=== PATIENT | female | born 1930 | race Caucasian/White ===

== ENCOUNTER 2017-02-17 09:07 | Observation (INO) | payer MEDICARE, MEDICAID ==
[~2017-02-17] VITALS: Ht 160 cm; Wt 55.0 kg
[2017-02-17] VITALS (9 sets, daily range): BP systolic 129–182; BP diastolic 59–92; PULSE 76–93; RESP 18–22; TEMP 97.8–98.3; O2SAT 94–98
[~2017-02-17 09:07] MED LIST: CIPR500T2 PO; ENOX40P SQ; HYDR-3580 PO; METF500 PO; QUET25 PO
[2017-02-17] MEDS ORDERED: SODIUM CHLORIDE 0.9% FLUSH 10 ML FLUSH IV FLUSH PRN ×2 (09:15→13:45)
--- NOTE | 2017-02-17 09:28 | PD ---
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 The daughter called EMS morning because the daughter thought the patient might have a urinary tract infection. She was also concerned immediately about a vaginal discharge. EMS notes no fever with a blood pressure 130/80 and heart rate of 95. O2 sat was 96% on room air. In the ER the patient's history of present illness is limited secondary to dementia. PFSH Past Medical History Alzheimer's Disease: Yes Diminished Hearing: No ?: Not Past Surgical History Genitourinary Surgery: Yes (had prolapsed urterus) Other Surgery: Yes (VARICOSE VEINS) Social History Alcohol Use: No Tobacco Use: No Substance Use: No Allergies-Medications (Allergen,Severity, Reaction): Coded Allergies: No Known Allergies (Unverified , 08/02/15) Reported Meds & Prescriptions Reported Meds & Active Scripts Active Reported Aspirin 81 Mg Chew 81 Mg CHEW DAILY Enalapril (Enalapril Maleate) 10 Mg Tab 10 Mg PO DAILY Metformin (Metformin HCl) 500 Mg Tab 500 Mg PO BIDPC With meals Review of Systems ROS Limitations: Speech Impaired, Poor Historian General / Constitutional: No: Fever Physical Exam Narrative GENERAL: 86-year-old female dementia, pleasant SKIN: Focused skin assessment warm/dry. RECTAL: There is brown stool. Guaiac positive. No mass or rectal abscess or fissure. HEAD: Atraumatic. Normocephalic. EYES: Pupils equal and round. No scleral icterus. No injection or drainage. ENT: No nasal bleeding or discharge. Mucous membranes pink and moist. NECK: Trachea midline. No JVD. CARDIOVASCULAR: Regular rate and rhythm. No murmur appreciated. RESPIRATORY: No accessory muscle use. Clear to auscultation. Breath sounds equal bilaterally. GASTROINTESTINAL: Soft. There is a gastric tube with a clean site of insertion/ no evidence cellulitis. MUSCULOSKELETAL: No obvious deformities. No clubbing. No cyanosis. No edema. NEUROLOGICAL: Patient tracks to voice. She moves her extremities. She is nonverbal. PSYCHIATRIC: Unable to assess Data Data Last Documented VS Vital Signs Date Time Temp Pulse Resp B/P Pulse Ox O2 Delivery O2 Flow Rate FiO2 02/17/17 11:19 85 20 172/92 95 Room Air 02/17/17 09:15 97.8 Vital signs reviewed Orders Basic Metabolic Panel (Bmp) (02/17/17 09:14) Complete Blood Count With Diff (02/17/17 09:14) Urinalysis - C+S If Indicated (02/17/17 09:14) Iv Access Insert/Monitor (02/17/17 09:14) Ecg Monitoring (02/17/17 09:14) Oximetry (02/17/17 09:14) Sodium Chloride 0.9% Flush (Ns Flush) (02/17/17 09:15) Cath For Specimen (02/17/17 09:14) Urine Culture (02/17/17 09:40) Prothrombin Time / Inr (Pt) (02/17/17 12:48) Act Partial Throm Time (Ptt) (02/17/17 12:48) Hepatic Functional Panel (02/17/17 12:48) Ct Abd/Pel W Iv Contrast(Rout) (02/17/17 12:48) Iohexol 350 Inj (Omnipaque 350 Inj) (02/17/17 13:19) Admit Order (Ed Use Only) (02/17/17 13:20) Labs Laboratory Tests Test 02/17/17 02/17/17 09:20 09:40 White Blood Count 6.4 TH/MM3 Red Blood Count 4.94 MIL/MM3 Hemoglobin 15.0 GM/DL Hematocrit 45.1 % Mean Corpuscular Volume 91.3 FL Mean Corpuscular Hemoglobin 30.4 PG Mean Corpuscular Hemoglobin 33.3 % Concent Red Cell Distribution Width 14.5 % Platelet Count 204 TH/MM3 Mean Platelet Volume 8.5 FL Neutrophils (%) (Auto) 57.9 % Lymphocytes (%) (Auto) 26.7 % Monocytes (%) (Auto) 6.1 % Eosinophils (%) (Auto) 8.9 % Basophils (%) (Auto) 0.4 % Neutrophils # (Auto) 3.7 TH/MM3 Lymphocytes # (Auto) 1.7 TH/MM3 Monocytes # (Auto) 0.4 TH/MM3 Eosinophils # (Auto) 0.6 TH/MM3 Basophils # (Auto) 0.0 TH/MM3 CBC Comment DIFF FINAL Differential Comment Sodium Level 141 MEQ/L Potassium Level 3.9 MEQ/L Chloride Level 106 MEQ/L Carbon Dioxide Level 24.5 MEQ/L Anion Gap 11 MEQ/L Blood Urea Nitrogen 23 MG/DL Creatinine 0.49 MG/DL Estimat Glomerular Filtration 120 ML/MIN Rate Random Glucose 107 MG/DL Calcium Level 9.1 MG/DL Urine Color LIGHT-RED Urine Turbidity HAZY Urine pH 8.0 Urine Specific [place] 1.016 Urine Protein 30 mg/dL Urine Glucose (UA) NEG mg/dL Urine Ketones NEG mg/dL Urine Occult Blood LARGE Urine Nitrite NEG Urine Bilirubin NEG Urine Urobilinogen LESS THAN 2.0 MG/DL Urine Leukocyte Esterase NEG Urine RBC /hpf Urine WBC 7 /hpf Urine Bacteria OCC /hpf Microscopic Urinalysis Comment CATH-CULTURE IND MDM Medical Decision Making Medical Screen Exam Complete: Yes Emergency Medical Condition: Yes Medical Record Reviewed: Yes Differential Diagnosis UTI, dehydration, GI bleed Narrative Course CBC & BMP Diagram 02/17/17 09:20 Urinalysis reveals hematuria The stool is brown and guaiac positive. Evidently symptoms were first noticed today. Admission for further investigation and serial blood work. LFTs and coags added. CT ab/pel added. Discussed with Dr. Portillo. H[facility]Prompt Point of Care Internal Pos. & Neg. Controls: Passed Fecal Specimen Occult Blood: Positive Diagnosis Primary Impression: Hematuria Additional Impression: Guaiac positive stools Admitting Information Admitting Physician Requests: Observation Norman Carrero MD February 17, 2017 09:28
[2017-02-17 09:56] LABS: AUTOMATED NEUTROPHIL # 3.7 TH/MM3 (1.8-7.7); BASOPHIL % 0.4 % (0.0-2.0); EOSINOPHIL # 0.6 TH/MM3 (0-0.4); EOSINOPHIL % 8.9 % (0.0-4.0); HEMATOCRIT 45.1 % (35.0-46.0); HEMO FLAGS DIFF FINAL; LYMPH % 26.7 % (9.0-44.0); LYMPHOCYTE # 1.7 TH/MM3 (1.0-4.8); MEAN CELL VOLUME 91.3 FL (80.0-100.0); MEAN CORPUSCULAR HEMOGLOBIN 30.4 PG (27.0-34.0); MEAN CORPUSCULAR HGB CONC 33.3 % (32.0-36.0); MONO % 6.1 % (0.0-8.0); NEUT % 57.9 % (16.0-70.0); PLATELET COUNT 204 TH/MM3 (150-450); RED BLOOD COUNT 4.94 MIL/MM3 (4.00-5.30); RED CELL DISTRIBUTION WIDTH 14.5 % (11.6-17.2); WHITE BLOOD COUNT 6.4 TH/MM3 (4.0-11.0)
[2017-02-17 10:09] LABS: BICARBONATE 24.5 MEQ/L (21.0-32.0); POTASSIUM 3.9 MEQ/L (3.5-5.1)
[2017-02-17 10:34] LABS: BACTERIA, URINE OCC /hpf; BLOOD, URINE LARGE (NEG); COMMENT (UR) CATH-CULTURE IND; CULTURE IF INDICATED CATH CULTURE IND; GLUCOSE,URINE NEG (NEG); KETONE, URINE NEG (NEG); NITRITE,URINE NEG (NEG)
[2017-02-17 10:36] LABS: URINE COLOR LIGHT-RED (YELLW/STRAW)
[2017-02-17] MEDS ORDERED: HYDR-4107 PO (12:13)
[2017-02-17] MEDS ORDERED: QUET1TAB7 PO (12:13)
[2017-02-17] MEDS ORDERED: CIPR-9 PO (12:13)
[2017-02-17] MEDS ORDERED: METF500T PO (12:13)
[2017-02-17] MEDS ORDERED: ENOX40IN SQ (12:13)
[2017-02-17] MEDS ORDERED: ENAL10TA PO (12:29)
[2017-02-17] MEDS ORDERED: ASPI81CH CHEW (12:29)
[2017-02-17] MEDS ORDERED: IOHEXOL 350 MG/ML 10 ML VIAL (for RAD DIAG) IV ONE (13:19)
[2017-02-17] MEDS ORDERED: ACETAMINOPHEN 325 MG TAB PO PRN (13:45)
[2017-02-17] MEDS ORDERED: ONDANSETRON HCL 4 MG/2 ML VIAL IVP PRN (13:45)
[2017-02-17] MEDS ORDERED: NALOXONE HCL 0.4 MG/ML AMP IV PRN (13:45)
--- NOTE | 2017-02-17 13:56 | RADRPT ---
EXAM DATE/TIME: 02/17/2017 13:14 [facility] COMPARISON: No previous studies available for comparison. INDICATIONS : Hematuria, swelling at G-tube site. IV CONTRAST: 68 cc Omnipaque 350 (iohexol) IV ORAL CONTRAST: No oral contrast ingested. RADIATION DOSE: 9.96 CTDIvol (mGy) MEDICAL HISTORY : dementia, alzheimer's, hypertension, prolapsed uterus, diabetes SURGICAL HISTORY : varicose vein surgery ENCOUNTER: Initial ACUITY: 1 day PAIN SCALE: Non-responsive LOCATION: Bilateral abdomen TECHNIQUE: Volumetric scanning of the abdomen and pelvis was performed. Using automated exposure control and ad justment of the mA and/or kV according to patient size, radiation dose was kept as low as reasonably achievable to obtain optimal diagnostic quality images. FINDINGS: LOWER LUNGS: The visualized lower lungs are clear. LIVER: There are low density lesions in the liver which are likely cysts, largest day 2.5 cm finding adjacen t to the falciform ligament. The gallbladder contains large calcified stones and is notable for mild wall thickening. SPLEEN: Normal size without lesion. PANCREAS: Within normal limits. KIDNEYS: There are small bilateral nonobstructing renal stones with a tiny stone in the anterior upper pole co llecting system of left kidney and a 4-5 mm stone in the posterior midpole collecting system of the r ight kidney. There is no evidence of hydronephrosis. ADRENAL GLANDS: There is a 2 cm left adrenal mass which warrants further evaluation VASCULAR: There is no aortic aneurysm. BOWEL/MESENTERY: A gastrostomy tube is present in good position. There does appear to be some tract cellulitis. No brad dence of abdominal wall or peritoneal abscess. Distal colonic diverticula. Abundant stool in the rect um. No abnormal dilatation, wall thickening or inflammatory changes ABDOMINAL WALL: See above RETROPERITONEUM: There is no lymphadenopathy. BLADDER: No wall thickening or mass. REPRODUCTIVE: Within normal limits. INGUINAL: There is no lymphadenopathy or hernia. MUSCULOSKELETAL: Previous pinning of the left hip. Degenerative changes in the spine. CONCLUSION: Gastrostomy tube tract cellulitis. Abnormal gallbladder appearance. 2 cm left adrenal mass which warrants further evaluation and ideally with chemical shift MRI Nonobstructing renal stones David Schmidt MD on February 17, 2017 at 13:45 Board Certified Radiologist. This report was verified electronically.
[2017-02-17 14:05] LABS: APTT (PATIENT) 25.2 SEC (24.3-30.1); PROTHROMBIN TIME - PATIENT 10.7 SEC (9.8-11.6)
[2017-02-17 14:10] LABS: INDIRECT BILIRUBIN 0.5 MG/DL (0.0-0.8); TOTAL BILIRUBIN ADULT 0.7 MG/DL (0.2-1.0)
[2017-02-17] MEDS: ENALAPRIL MALEATE 10 MG TAB PO SCH (15:07)
[2017-02-17] MEDS: SODIUM CHLOR 0.9% 1000 ML INJ 1,000 ML IV SCH (15:16)
--- NOTE | 2017-02-17 16:11 | HHI.HP ---
HPI Service [facility] Hospitalists Primary Care Physician Non-Staff Admission Diagnosis hematuria, guaiac positive stool Diagnoses: Chief Complaint: Hematuria Foul smelling urine Travel History International Travel<30 Days: No Contact w/Intl Traveler <30 Da: No Traveled to Known Affected Are: No History of Present Illness 86 yo Turkish speaking female with PMHX significant for dementia, diabetes and hypertension brought into [facility] due to daughter seeing blood in her diaper for the past 2 days and is concerned patient may have a urinary tract infection. Due to patients severe dementia, history is obtained from discussion with the patients daughter and review of the medical record. Daughter reports patient has not been feeling well. She states the patients urine has been extremely foul smelling. She states her mothers mentation is at her baseline. She reports purulence around the PEG tube site for the past 2 weeks of pus. Patient's stool was guaiac positive in the ED. Patient underwent an EGD with biopsy of the proximal me 3-4 days ago at [facility] in [place]. Daughter is unaware of the results of the biopsy. In the ED, CT of abdomen and pelvis was obtained which revealed gastrostomy tube tract cellulitis, abnormal gallbladder appearance, nonobstructing renal stones and a 2 cm left adrenal mass. Her white count was normal at 6.4. Chemistry panel was unremarkable except for elevated BUN of 23. Urinalysis revealed 30 protein, large occult blood occasional bacteria and 7 white blood cells. Culture is indicated and is pending. Review of Systems Except as stated in HPI: all other systems reviewed are Neg Past Family Social History Past Medical History Alzheimer's Dementia Hypertension Diabetes Mellitus, type 2 Prolapsed uterus Past Surgical History Left ORIF s/p left femoral neck fracture Varicose veins G tube placement EGD 4-5 days ago at [place] Reported Medications Aspirin 81 Mg Chew 81 Mg CHEW DAILY Enalapril (Enalapril Maleate) 10 Mg Tab 10 Mg PO DAILY Metformin (Metformin HCl) 500 Mg Tab 500 Mg PO BIDPC With meals Allergies: Coded Allergies: No Known Allergies (Unverified , 08/02/15) Active Ordered Medications Current Medications Medications (Trade) Dose Ordered Sig/Christopher Route Start Time Stop Time Status Last Admin (NS 1000 ml Inj) 1,000 ml @ 100 mls/hr Q10H IV 02/17/17 14:00 02/17/17 15:16 (NS Flush) 2 ml UNSCH PRN IV FLUSH 02/17/17 13:45 (NS Flush) 2 ml BID IV FLUSH 02/17/17 21:00 (Tylenol) 650 mg Q4H PRN PO 02/17/17 13:45 (Zofran Inj) 4 mg Q6H PRN IVP 02/17/17 13:45 (Milk Of Magnesia Liq) 30 ml Q12H PRN PO 02/17/17 13:45 (Narcan Inj) 0.4 mg UNSCH PRN IV 02/17/17 13:45 (Aspirin Chew) 81 mg DAILY CHEW 02/18/17 09:00 (Vasotec) 10 mg DAILY PO 02/17/17 14:30 02/17/17 15:07 (Pneumovax-23 Inj) 25 mcg ONCE ONCE IM 02/18/17 10:00 02/18/17 10:01 (Flu (Quadrivalent) Vaccine Inj) 0.5 ml ONCE ONCE IM 02/18/17 10:00 02/18/17 10:01 Family History Mother, age 92 following hip fracture Father, , Alzheimer's dementia Social History Quit smoking over 40yrs - previously smoked 1 pack per week x 20 yrs. Denies any EtOH use or illicit drug use. Physical Exam Vital Signs Vital Signs Date Time Temp Pulse Resp B/P Pulse Ox O2 Delivery O2 Flow Rate FiO2 02/17/17 15:22 78 18 175/80 95 02/17/17 13:58 98.3 79 18 182/86 97 Room Air 02/17/17 11:19 85 20 172/92 95 Room Air 02/17/17 09:24 94 Room Air 02/17/17 09:15 97.8 92 22 164/79 94 Physical Exam GENERAL: This is a well-nourished, well-developed patient, in no apparent distress. Awake. Nonverbal. Family is at the bedside. SKIN: No rashes, ecchymoses or lesions. Cool and dry. HEAD: Atraumatic. Normocephalic. No temporal or scalp tenderness. EYES: Pupils equal round and reactive. Extraocular motions intact. No scleral icterus. No injection or drainage. ENT: Nose without bleeding, purulent drainage or septal hematoma. Throat without erythema, tonsillar hypertrophy or exudate. Uvula midline. Airway patent. NECK: Trachea midline. No lymphadenopathy. Supple, nontender, no meningeal signs. CARDIOVASCULAR: Regular rate and rhythm without murmurs, gallops, or rubs. RESPIRATORY: Clear to auscultation. Breath sounds equal bilaterally. No wheezes , rales, or rhonchi. GASTROINTESTINAL: Abdomen soft, non-tender, nondistended. No hepato-splenomegaly , or palpable masses. No guarding. PEG site CDI with no obvious s/sxs of infection. MUSCULOSKELETAL: Extremities without clubbing, cyanosis, or edema. No joint tenderness, effusion, or edema noted. No calf tenderness. NEUROLOGICAL: Awake. Severe dementia. Laboratory Laboratory Tests Test 02/17/17 02/17/17 02/17/17 09:20 09:40 13:30 White Blood Count 6.4 Red Blood Count 4.94 Hemoglobin 15.0 Hematocrit 45.1 Mean Corpuscular Volume 91.3 Mean Corpuscular Hemoglobin 30.4 Mean Corpuscular Hemoglobin 33.3 Concent Red Cell Distribution Width 14.5 Platelet Count 204 Mean Platelet Volume 8.5 Neutrophils (%) (Auto) 57.9 Lymphocytes (%) (Auto) 26.7 Monocytes (%) (Auto) 6.1 Eosinophils (%) (Auto) 8.9 Basophils (%) (Auto) 0.4 Neutrophils # (Auto) 3.7 Lymphocytes # (Auto) 1.7 Monocytes # (Auto) 0.4 Eosinophils # (Auto) 0.6 Basophils # (Auto) 0.0 CBC Comment DIFF FINAL Differential Comment Sodium Level 141 Potassium Level 3.9 Chloride Level 106 Carbon Dioxide Level 24.5 Anion Gap 11 Blood Urea Nitrogen 23 Creatinine 0.49 Estimat Glomerular Filtration 120 Rate Random Glucose 107 Calcium Level 9.1 Total Bilirubin 0.7 Direct Bilirubin 0.2 Indirect Bilirubin 0.5 Aspartate Amino Transf 25 (AST/SGOT) Alanine Aminotransferase 27 (ALT/SGPT) Alkaline Phosphatase 70 Total Protein 7.1 Albumin 3.1 Urine Color LIGHT-RED Urine Turbidity HAZY Urine pH 8.0 Urine Specific [place] 1.016 Urine Protein 30 Urine Glucose (UA) NEG Urine Ketones NEG Urine Occult Blood LARGE Urine Nitrite NEG Urine Bilirubin NEG Urine Urobilinogen LESS THAN 2.0 Urine Leukocyte Esterase NEG Urine RBC Urine WBC 7 Urine Bacteria OCC Microscopic Urinalysis Comment CATH-CULTURE IND Prothrombin Time 10.7 Prothromb Time International 1.0 Ratio Activated Partial 25.2 Thromboplast Time Date/Time Procedure Status Source Growth 02/17/17 09:40 Urine Culture Received Urine Catheterized Urine Pending Result Diagram: 02/17/1791902/17/17 0920 Imaging Last Impressions Abdomen/Pelvis CT 02/17/17 1248 Signed Impressions: Service Date/Time: Friday, February 17, 2017 13:14 - CONCLUSION: Gastrostomy tube tract cellulitis. Abnormal gallbladder appearance. 2 cm left adrenal mass which warrants further evaluation and ideally with chemical shift MRI Nonobstructing renal stones David Schmidt MD Assessment and Plan Assessment and Plan 86 yo Turkish speaking female with PMHX significant for dementia, diabetes and hypertension brought into [facility] due to daughter seeing blood in her diaper for the past 2 days and is concerned patient may have a urinary tract infection. 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 Patient is afebrile. Normal white count. on IV Rocephin for UTI Continue with PEG tube feedings will monitor //HTN Resume home medication Hydralazine 10mg prn BP > 160/90 Monitor BP //DM Hold home Metformin Accuchecks ISS Obtain A1c //Constipation per daughter, no BM x 3 days MOM ordered Monitor for BM //DVT prophylaxis SCD/LAURA justine Written by Shannon Petty PA-C acting as scribe for Dr. Portillo on 02/17/17 at 16 :08. This note was transcribed by elvia Petty PA-C. I, Dr. Caleb Portillo personally performed the history, physical exam, and medical decision making; and confirmed the accuracy of the information in the transcribed note. Authenticated by Dr. Caleb Portillo on 02/18/17 at 00:51. Discussed Condition With Patient, daughter, ED physician Shannon Petty February 17, 2017 16:11 Erendira Portillo DO February 18, 2017 00:52
[2017-02-17] MEDS ORDERED: DEXTROSE 50% IN WATER 50 ML VIAL(D50) IV PUSH PRN (16:15)
[2017-02-17] MEDS ORDERED: GLUCAGON 1 MG/ML VIAL OTHER PRN (16:15)
[2017-02-17] MEDS ORDERED: hydrALAZINE HCL 25 MG TAB PEG PRN (17:15)
[2017-02-17] MEDS: cefTRIAXone INJ 1,000 MG in SODIUM CHLORIDE 0.9% INJ 100 ML IV SCH (17:31)
[2017-02-17] MEDS: MAGNESIUM HYDROXIDE SUSP 30 ML CUP PO PRN (17:31)
[2017-02-17] MEDS ORDERED: hydrALAZINE HCL 10 MG TAB PEG PRN (18:00)
[2017-02-17] MEDS: SODIUM CHLORIDE 0.9% FLUSH 10 ML FLUSH IV FLUSH SCH (21:00)
[2017-02-17] MEDS: INSULIN ASPART SUPPLEMENTAL SCALE SQ SCH (22:01)
[2017-02-18] VITALS (8 sets, daily range): BP systolic 126–159; BP diastolic 62–91; PULSE 80–91; RESP 16–18; TEMP 96.3–98.2; O2SAT 93–97
[2017-02-18 05:17] LABS: AUTOMATED NEUTROPHIL # 4.8 TH/MM3 (1.8-7.7); BASOPHIL % 0.2 % (0.0-2.0); EOSINOPHIL # 0.6 TH/MM3 (0-0.4); EOSINOPHIL % 8.2 % (0.0-4.0); HEMATOCRIT 38.1 % (35.0-46.0); HEMO FLAGS DIFF FINAL; LYMPH % 24.3 % (9.0-44.0); LYMPHOCYTE # 1.9 TH/MM3 (1.0-4.8); MEAN CORPUSCULAR HEMOGLOBIN 30.6 PG (27.0-34.0); MEAN CORPUSCULAR HGB CONC 33.6 % (32.0-36.0); MONO % 6.8 % (0.0-8.0); NEUT % 60.5 % (16.0-70.0); PLATELET COUNT 202 TH/MM3 (150-450); RED BLOOD COUNT 4.18 MIL/MM3 (4.00-5.30); RED CELL DISTRIBUTION WIDTH 14.7 % (11.6-17.2); WHITE BLOOD COUNT 7.9 TH/MM3 (4.0-11.0)
[2017-02-18 05:40] LABS: ANION GAP 6 MEQ/L (5-15); BICARBONATE 27.9 MEQ/L (21.0-32.0); BLOOD UREA NITROGEN 21 MG/DL (7-18); CHLORIDE 107 MEQ/L (98-107); GLOMERULAR FILTRATION RATE 110 ML/MIN (>89); POTASSIUM 3.9 MEQ/L (3.5-5.1); SODIUM (NA) 141 MEQ/L (136-145)
[2017-02-18] MEDS: INSULIN ASPART SUPPLEMENTAL SCALE SQ SCH ×4 (06:28→21:00)
[2017-02-18] MEDS: SODIUM CHLOR 0.9% 1000 ML INJ 1,000 ML IV SCH (07:51)
[2017-02-18] MEDS: SODIUM CHLORIDE 0.9% FLUSH 10 ML FLUSH IV FLUSH SCH ×2 (09:00→21:00)
[2017-02-18] MEDS: ENALAPRIL MALEATE 10 MG TAB PO SCH (09:09)
[2017-02-18] MEDS: ASPIRIN 81 MG CHEW TAB CHEW SCH (09:10)
[2017-02-18] MEDS ORDERED: PNEUMOCOCCAL POLYVALENT INJ 25 MCG/0.5 ML SYR IM ONE (10:00)
[2017-02-18] MEDS ORDERED: INFLUENZA VIRUS VACCINE (QUADRIVALENT) 0.5 ML SYR IM ONE (10:00)
[2017-02-18 13:59] LABS: HEMOGLOBIN A1a 1.3 %; HEMOGLOBIN A1b 1.2 %; HEMOGLOBIN F 1.2 %; HEMOGLOBIN LA1C 2.4 %; HEMOGLOBIN P3 6.3 %
--- NOTE | 2017-02-18 14:09 | RADRPT ---
EXAM DATE/TIME: 02/18/2017 13:00 [facility] COMPARISON: CT ABDOMEN & PELVIS W CONTRAST, February 17, 2017, 13:14. INDICATIONS : Abnormal appearance on CT. MEDICAL HISTORY : Dementia. Alzheimer's. HTN. Diabetes. SURGICAL HISTORY : Prolapsed uterus. Hip. Varicose veins. ENCOUNTER: Initial ACUITY: 1 day PAIN SCORE: Nonresponsive. LOCATION: Right upper quadrant MEASUREMENTS: LIVER: 12.7 cm length COMMON DUCT: 5 mm RIGHT KIDNEY: 9.6 x 5.9 x 5.5 cm FINDINGS: LIVER: Normal echotexture without focal lesion or ductal dilatation. A 2.3 cm cyst is seen involving the lef t lobe of the liver. This is adjacent to the falciform ligament. A thin septa is seen within the cyst . No solid lesion. Hepatopedal flow within the portal vein. COMMON DUCT: No intraluminal mass or stone visualized. GALLBLADDER: Multiple calcified gallstones generat shadowing. A small portion of the gallbladder wall is observed and is mildly thickened measuring 4 mm. No pericholecystic fluid. PANCREAS: The visualized portions are within normal limits. RIGHT KIDNEY: No evidence of hydronephrosis, stone, or mass. CONCLUSION: 1. Cholelithiasis with a mildly thickened wall. No pericholecystic fluid. 2. Mildly complex cyst involving the left lobe of the liver. Emmanuel Mcmullen Jr., MD on February 18, 2017 at 14:00 Board Certified Radiologist. This report was verified electronically.
--- NOTE | 2017-02-18 15:55 | HHI.PR ---
Subjective Remarks Follow up for hematuria, adrenal incidentaloma. Patient is not able to verbalize much. However, when the daughter is present, patient reports no pain, fever, chills. She is currently on tube feed. Urine continues to be bloody in appearance. Objective Vitals Vital Signs Date Time Temp Pulse Resp B/P Pulse Ox O2 Delivery O2 Flow Rate FiO2 02/18/17 12:00 97.0 91 16 126/62 95 02/18/17 08:00 97.2 83 18 141/91 93 Automatic Cuff 02/18/17 07:40 93 21 02/18/17 04:24 98.2 83 18 143/69 97 02/17/17 23:54 97.9 76 18 134/72 97 02/17/17 19:12 97.8 93 18 129/66 98 02/17/17 17:15 130/59 02/17/17 16:30 160/90 I/O 02/17/17 02/17/17 02/17/17 02/18/17 02/18/17 02/18/17 07:00 15:00 23:00 07:00 15:00 23:00 Intake Total 350 ml Output Total 300 ml 300 ml 625 ml Balance 50 ml -300 ml -625 ml Intake Tube Feeding 150 ml Other 200 ml Output Urine Total 300 ml 300 ml 625 ml Result Diagram: 02/18/17 0438 02/18/17 0438 Imaging Last Impressions Gall Bladder Ultrasound 02/18/17 0000 Signed Impressions: Service Date/Time: Saturday, February 18, 2017 13:00 - CONCLUSION: 1. Cholelithiasis with a mildly thickened wall. No pericholecystic fluid. 2. Mildly complex cyst involving the left lobe of the liver. Emmanuel Mcmullen Jr., MD Abdomen X-Ray 02/18/17 0000 Signed Impressions: Service Date/Time: Saturday, February 18, 2017 16:06 - CONCLUSION: Limited study. Normal bowel gas pattern without significant stool burden. Emmanuel Mcmullen Jr., MD Abdomen/Pelvis CT 02/17/17 1248 Signed Impressions: Service Date/Time: Friday, February 17, 2017 13:14 - CONCLUSION: Gastrostomy tube tract cellulitis. Abnormal gallbladder appearance. 2 cm left adrenal mass which warrants further evaluation and ideally with chemical shift MRI Nonobstructing renal stones David Schmidt MD Objective Remarks GENERAL: Alert, NAD SKIN: Warm and dry. HEAD: Normocephalic. EYES: No scleral icterus. No injection or drainage. NECK: Supple, trachea midline. No JVD or lymphadenopathy. CARDIOVASCULAR: Regular rate and rhythm without murmurs, gallops, or rubs. RESPIRATORY: Breath sounds equal bilaterally. No accessory muscle use. GASTROINTESTINAL: Abdomen soft, non-tender, nondistended. MUSCULOSKELETAL: No cyanosis, or edema. BACK: Nontender without obvious deformity. No CVA tenderness. Procedures None. A/P Assessment and Plan 86 yo Maori speaking female with PMHX significant for dementia, diabetes and hypertension brought into [facility] due to daughter seeing blood in her diaper for the past 2 days and is concerned patient may have a urinary tract infection. //Dementia mentation at baseline per daughter's report // /Hematuria Empiric treatment with IV Rocephin Follow up on urine culture results Mccoy catheter - may consider discontinuing it on 02/19/2017. Appreciate Urology input which sounds very appropriate. Outpatient cystoscopy per urology. //Guaiac positive stool Patient's hemodynamically stable Recent EGD with biopsy as outpatient 3-4 days ago Recommend follow-up with fire extinguisher technician as outpatient. However, daughter insisted on a GI consultation. I discussed with GI. Patient recently had endoscopic studies done. We will try to obtain records. Patient's hemoglobin is 12.8. No acute GI bleed noted. Patient can follow up with her GI doctor. //Adrenal mass incidental finding on CT abd/pelvis Urology recommends conservative approach with regards to adrenal incidentaloma. Outpatient MRI can be done. //HTN Resume home medication Hydralazine 10mg prn BP > 160/90 Monitor BP //DM Hold home Metformin Accuchecks with Sliding scale insulin. HgbA1c 5.6. //Constipation per daughter, no BM x 3 days MOM ordered. KUB done today shows no significant stool. Will order Dulcolax supp and Fleet enema PRN. //DVT prophylaxis JOSE/Erendira Mendosa DO February 18, 2017 15:55
--- NOTE | 2017-02-18 16:30 | RADRPT ---
EXAM DATE/TIME: 02/18/2017 16:06 [facility] COMPARISON: No previous studies available for comparison. INDICATIONS : Constipation. MEDICAL HISTORY : dementia, alzheimer's, hypertension, prolapsed uterus, diabetes SURGICAL HISTORY : None. ENCOUNTER: Initial ACUITY: 1 day PAIN SCORE: 0/10 LOCATION: Bilateral Abdomen FINDINGS: 2 portable supine views of the abdomen omits the right infralateral abdominal cavity. Gastrostomy tub e noted. No dilated loops of bowel. No significant stool burden. A degenerative spine. Clear lung bas es. CONCLUSION: Limited study. Normal bowel gas pattern without significant stool burden. Emmanuel Mcmullen Jr., MD on February 18, 2017 at 16:27 Board Certified Radiologist. This report was verified electronically.
[2017-02-18] MEDS: cefTRIAXone INJ 1,000 MG in SODIUM CHLORIDE 0.9% INJ 100 ML IV SCH (17:33)
--- NOTE | 2017-02-18 18:42 | MB ---
cc: MARIA SHELBY MD, DATE OF CONSULTATION 02/18/17 REASON FOR CONSULTATION Heme-positive stools. HISTORY OF PRESENT ILLNESS Ms. Jiménez is an 86-year-old lady with advanced dementia, diabetes brought in by the daughter because of concerns with UTI. The patient herself is unable to provide any history. She has a G-tube in place with CT scan showing some cellulitis around the G-tube. The G-tube is working well. Apparently, she was in [facility] a few days ago and had an endoscopy done with biopsies. Unclear to me why this procedure was done and what the results were. Dr. Portillo is trying to obtain the records from Dr. Garcia. A CT scan done here in the hospital revealed a gastrostomy tube with cellulitis, abnormal gallbladder appearance, nonobstructing renal stones and a 2 cm left adrenal mass. REVIEW OF SYSTEMS Unobtainable. PAST MEDICAL HISTORY 1. Alzheimer's dementia, 2. Hypertension, 3. Diabetes, 4. Prolapsed uterus PAST SURGICAL HISTORY 1. ORIF 2. G-tube placement 3. Endoscopy 4-5 days ago in [facility] MEDICATIONS On admission 1. Aspirin 2. Enalapril 3. Metformin FAMILY HISTORY Noncontributory. SOCIAL HISTORY Patient has history of smoking, currently no smoking or alcohol PHYSICAL EXAMINATION GENERAL: A well-nourished lady in no apparent distress. She is nonverbal. HEAD/NECK: Anicteric sclerae. CHEST: Bilateral air entry with rales. ABDOMEN: Soft. G-tube site looks good. G tube is in place. LABORER DRYING DEPARTMENT: Nonfocal. LABORATORY DATA White cell count of 7.9, hemoglobin is 12.8, creatinine 0.53. Liver function tests are normal. IMAGING STUDIES CT of the abdomen and pelvis reveals abnormal appearance of the gallbladder, some cellulitis around the gastrostomy tube tract, 2 cm left adrenal mass. Gallbladder ultrasound shows cholelithiasis with some gallbladder wall thickening. There is a cyst on the left lobe of the liver. IMPRESSION Heme positive stools RECOMMENDATIONS The patient is in no condition to tolerate a bowel prep and a colonoscopy. Daughter is not available at the bedside at this time. We will discuss with her further course of workup. Case was discussed with Dr. Portillo. Await results of endoscopy from [facility]. Tube feedings as tolerated. Monitor labs. We will follow with you. Thank you for this referral. MD VINNY Jack/ /5:15 PM /6:33 PM MTDDylan
[2017-02-18] MEDS ORDERED: SOD PHOSPHATE/SOD BIPHOSPHATE (ADULT) ENEMA 133ML RECTAL PRN (20:15)
[2017-02-18] MEDS ORDERED: BISACODYL 10 MG SUPP RECTAL PRN (20:15)
--- NOTE | 2017-02-18 20:28 | MB ---
cc: BRIGIDO MALDONADO MD DATE OF CONSULTATION 02/18/17 REASON FOR CONSULTATION Gross hematuria. HISTORY OF PRESENT ILLNESS The patient is an 86-year-old female with a past medical history significant for severe dementia and diabetes who was brought to the [facility] ER yesterday by her daughter who saw blood in her Depends for the last two days and though maybe she had a urinary tract infection. The patient has severe dementia and history is obtained from the hospital records. It is reported that her daughter stated the patient had not been feeling well lately and that her urine had a very foul odor. She also has seen a purulent discharge around the PEG tube site for the past two weeks. While in the emergency room, she had a CT abdomen and pelvis with an without contrast which showed a 5 mm nonobstructing kidney stone in both of her kidneys as well as an incidental 2 cm left adrenal mass. She was subsequently admitted for further evaluation. Her urine cultures also came back negative for any bloody in her urin and urology was consulted for this gross hematuria. There appears to be no other record of hematuria in the past. There is no record of previous known kidney stones or genitourinary malignancies. PAST HISTORY 1. Alzheimer's dementia, 2. Hypertension, 3. Diabetes 4. Collapsed uterus. HISTORY 1. G-tube placement 2. Esophagogastroduodenoscopy 3. ORIF of her left femoral neck. MEDICATIONS Home include, 1. Metformin 500 mg p.o. b.i.d. 2. Enalapril 10 mg p.o. daily. 3. Aspirin 81 mg daily. ALLERGIES NO KNOWN DRUG ALLERGIES. FAMILY HISTORY No evidence of urolithiasis or genitourinary malignancies. SOCIAL HISTORY Tobacco use but quit 40 years ago. No illicit drug or alcohol use. PHYSICAL EXAMINATION VITAL SIGNS: Temperature 96.3, pulse 83, respiratory rate 16, BP 136/64 and 79% on room air. GENERAL: She is awake but does not respond to questions. She does not appear to be any distress. HEAD: Head is normocephalic, atraumatic. HEART: Regular rhythm. LUNGS: Clear to auscultation bilaterally ABDOMEN: Soft, nontender, nondistended. Positive bowel sounds. GENITOURINARY:: No CVA tenderness bilaterally. PELVIC: Exam not indicated. EXTREMITIES: Nontender. No clubbing, cyanosis, edema. SKIN: No ulcers or rashes that are visible LABORATORY DATA White count 7.9. Hemoglobin 12.8, hematocrit 38.1, platelet count 202. Sodium 141, potassium 3.9, chloride 107, bicarb 27.9, BUN 21, creatinine 0.53, glucose 124. Urine showed large blood, negative nitrite. Urine culture was negative. IMAGING STUDIES CT abdomen and pelvis images reviewed, read radiologist's report. The patient has bilateral nonobstructing stones, largest 5 mL, as well as a 2 cm incidental left adrenal mass. 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 The blood in her urine likely could be from her stones in her kidney. However, she will need to complete her hematuria workup which would involve a cystoscopy which can be done as an outpatient. As far as the incidentaloma of her left adrenal gland. An MRI could further characterize this finding. However, due to the patient's comorbidities and overall clinical condition, it may be just be something to manage conservatively going forward. Thank you for this consultation. Please call with any questions. Brigido Maldonado MD EMAnel/ /5:48 PM /8:13 PM
[2017-02-19 03:45] VITALS: BP 148/72; PULSE 87; RESP 16; TEMP 97.4; O2SAT 96
[2017-02-19] MEDS: MAGNESIUM HYDROXIDE SUSP 30 ML CUP PO PRN (04:47)
[2017-02-19] MEDS: INSULIN ASPART SUPPLEMENTAL SCALE SQ SCH ×2 (07:00→11:00)
[2017-02-19] MEDS: SODIUM CHLOR 0.9% 1000 ML INJ 1,000 ML IV SCH (07:27)
--- NOTE | 2017-02-19 08:00 | HHI.PR ---
Subjective Remarks Follow-up for hematuria. Patient's granddaughter is at bedside. Patient is currently doing about the same. This is her baseline. Has not had a bowel movement yet. Objective Vitals Vital Signs Date Time Temp Pulse Resp B/P Pulse Ox O2 Delivery O2 Flow Rate FiO2 02/19/17 03:45 97.4 87 16 148/72 96 02/18/17 23:55 98.0 85 16 141/63 96 02/18/17 20:47 80 16 159/70 95 02/18/17 19:24 94 21 02/18/17 16:00 96.3 83 16 136/64 94 02/18/17 12:00 97.0 91 16 126/62 95 02/18/17 08:00 97.2 83 18 141/91 93 Automatic Cuff I/O 02/18/17 02/18/17 02/18/17 02/19/17 02/19/17 02/19/17 07:00 15:00 23:00 07:00 15:00 23:00 Output Total 300 ml 625 ml 325 ml 350 ml Balance -300 ml -625 ml -325 ml -350 ml Output Urine Total 300 ml 625 ml 325 ml 350 ml Result Diagram: 02/18/17 0438 02/18/17 0438 Imaging Last Impressions Gall Bladder Ultrasound 02/18/17 0000 Signed Impressions: Service Date/Time: Saturday, February 18, 2017 13:00 - CONCLUSION: 1. Cholelithiasis with a mildly thickened wall. No pericholecystic fluid. 2. Mildly complex cyst involving the left lobe of the liver. Emmanuel Mcmullen Jr., MD Abdomen X-Ray 02/18/17 0000 Signed Impressions: Service Date/Time: Saturday, February 18, 2017 16:06 - CONCLUSION: Limited study. Normal bowel gas pattern without significant stool burden. Emmanuel Mcmullen Jr., MD Abdomen/Pelvis CT 02/17/17 1248 Signed Impressions: Service Date/Time: Friday, February 17, 2017 13:14 - CONCLUSION: Gastrostomy tube tract cellulitis. Abnormal gallbladder appearance. 2 cm left adrenal mass which warrants further evaluation and ideally with chemical shift MRI Nonobstructing renal stones David Schmidt MD Objective Remarks GENERAL: Alert, NAD SKIN: Warm and dry. HEAD: Normocephalic. EYES: No scleral icterus. No injection or drainage. NECK: Supple, trachea midline. No JVD or lymphadenopathy. CARDIOVASCULAR: Regular rate and rhythm without murmurs, gallops, or rubs. RESPIRATORY: Breath sounds equal bilaterally. No accessory muscle use. GASTROINTESTINAL: Abdomen soft, non-tender, nondistended. MUSCULOSKELETAL: No cyanosis, or edema. BACK: Nontender without obvious deformity. No CVA tenderness. Procedures None. A/P Assessment and Plan 86 yo Divehi speaking female with PMHX significant for dementia, diabetes and hypertension brought into [facility] due to daughter seeing blood in her diaper for the past 2 days and is concerned patient may have a urinary tract infection. //Dementia mentation at baseline per daughter's report // /Hematuria Empiric treatment with IV Rocephin. Will d/c antibiotics today. Follow up on urine culture results Mccoy catheter - may consider discontinuing it on 02/19/2017. Appreciate Urology input which sounds very appropriate. Outpatient cystoscopy per urology. //Guaiac positive stool Patient's hemodynamically stable Recent EGD with biopsy as outpatient 3-4 days ago Recommend follow-up with rehab spec as outpatient. However, daughter insisted on a GI consultation. I discussed with GI. Patient recently had endoscopic studies done. Patient's hemoglobin is 12.8. No acute GI bleed noted. Patient can follow up with her GI doctor. Will get an H&H this morning. //Adrenal mass incidental finding on CT abd/pelvis Urology recommends conservative approach with regards to adrenal incidentaloma. Outpatient MRI can be done. //HTN Resume home medication Hydralazine 10mg prn BP > 160/90 Monitor BP //DM Hold home Metformin. Can continue on discharge. Accuchecks with Sliding scale insulin. HgbA1c 5.6. //Constipation per daughter, no BM x 3 days MOM ordered. KUB done today shows no significant stool. Will order Dulcolax supp and Fleet enema PRN. //DVT prophylaxis SCD/LAURA flanagan Full code. Discharge plan: If H&H looks reasonable and has a BM, patient can be discharged home. Erendira Portillo DO February 19, 2017 7:59 am
[2017-02-19 08:11] VITALS: BP 149/81; PULSE 83; RESP 20; TEMP 98; O2SAT 94
[2017-02-19] MEDS ORDERED: NEXI20CA PO (08:55)
[2017-02-19] MEDS: SODIUM CHLORIDE 0.9% FLUSH 10 ML FLUSH IV FLUSH SCH (09:00)
[2017-02-19] MEDS: ENALAPRIL MALEATE 10 MG TAB PO SCH (09:08)
[2017-02-19] MEDS: ASPIRIN 81 MG CHEW TAB CHEW SCH (09:08)
[2017-02-19 10:11] LABS: HEMATOCRIT 35.9 % (35.0-46.0); REVIEW FLAG FINAL
[2017-02-19 11:46] VITALS: BP 167/75; PULSE 85; RESP 18; TEMP 98.3; O2SAT 93
== END 2017-02-19 15:55 | disposition home or self-care (01) ==
LOC: NEPE 09:07 → NEDA 13:21 → NEPFCDU 14:31
PROVIDERS: ADMIT Hospitalist; ATTEND Hospitalist
DX: R31.0 Gross hematuria (principal); R19.5 Other fecal abnormalities; F03.90 Unspecified dementia, unspecified severity, without behavioral disturbance, psychotic disturbance, mood disturbance, and anxiety; Z79.84 Long term (current) use of oral hypoglycemic drugs; Z79.899 Other long term (current) drug therapy; I10 Essential (primary) hypertension; E11.9 Type 2 diabetes mellitus without complications; N20.0 Calculus of kidney; E27.9 Disorder of adrenal gland, unspecified; N81.4 Uterovaginal prolapse, unspecified; Z87.891 Personal history of nicotine dependence; Z93.1 Gastrostomy status; L03.311 Cellulitis of abdominal wall; K59.00 Constipation, unspecified; K80.20 Calculus of gallbladder without cholecystitis without obstruction; K76.89 Other specified diseases of liver; Z23 Encounter for immunization
CPT/HCPCS: 74000; 74177; 76705; 80048; 80076; 81001; 82948; 83036; 84443; 85014; 85018; 85025; 85610; 85730; 87086; 90732; 99285; G0008; G0009; G0378; J0696; J1815; J7030; P9612; Q2038; Q9967; 90471; 90472; 90686